=== PATIENT | male | born 1985 | race Caucasian/White ===

== ENCOUNTER 2022-04-21 13:24 | Emergency (ER) | payer SELFPAY ==
[~2022-04-21] VITALS: Ht 165.1 cm; Wt 92.5 kg
[~2022-04-21 13:24] MED LIST: ACET-8386 PO
[2022-04-21 13:32] VITALS: BP 137/84
--- NOTE | 2022-04-21 14:40 | NUR ---
PT AMB TO BED 8
--- NOTE | 2022-04-21 14:46 | NUR ---
PA APARICIO EVALUATING PT AT THIS TIME
[2022-04-21] MEDS ORDERED: KETOROLAC 30 MG/ML VIAL IM ONE (14:55)
--- NOTE | 2022-04-21 15:20 | NUR ---
36YO MALE PT C/O SHARP 9/10 LOWER BACK PAIN X3 DAYS. PT STATES NEW ONSET OF PAIN WHILE BENDING AT WAIST AFTER A DAY OF SWIMMING. PT HAS HX OF HERNIATED DISC AND HAS CHRONIC MILD EPISODES OF PAIN X2 YEARS . PT STATES HE USUALLY HAS MILD RELIEF WHEN TAKING TYLENOL, DENIES RELIEF TODAY. PT HAS MOST PAIN IN LOWER R BACK AND AT MOVEMENT . PT AMBULATORY W/ HUNCHED BACK. BACK PRESENTS W/O VISIBLE INJURY OR SWELLING AND NON TENDER. PT ABLE TO BEND AT WAIST WITH DISCOMFORT. DENIES N/V/D OR CHEST PAIN. PT AAOX4 AND SITTING UP IN BED PER COMFORT. NO VISIBLE DISTRESS, RESPIRATIONS EVEN AND UNLABORED. HX: HERNIATED DISC NKA
[2022-04-21 16:16] VITALS: BP 133/89
[2022-04-21] MEDS ORDERED: LID5T TP (16:21)
[2022-04-21] MEDS ORDERED: IBUP-2213 PO (16:21)
[2022-04-21] MEDS ORDERED: ACET-8386 PO (16:21)
--- NOTE | 2022-04-21 16:40 | NUR ---
Patient discharged with v/s stable. Written and verbal after care instructions ABOUT LUMBSACRAL RADICULOPATHY given and explained. Patient verbalized understanding. Ambulatory with steady gait. Prescription for Hydrocodone/acetaminophen, ibuprofen, and lidocaine given. Work status report given. All questions addressed prior to discharge. Advised to follow up with PMD.
== END 2022-04-21 16:40 | disposition home or self-care (01) ==
LOC: MED 13:24
DX: S39.012A Strain of muscle, fascia and tendon of lower back, initial encounter (principal); K21.9 Gastro-esophageal reflux disease without esophagitis; X58.XXXA Exposure to other specified factors, initial encounter; Y93.89 Activity, other specified; Y92.89 Other specified places as the place of occurrence of the external cause; Y99.8 Other external cause status
CPT/HCPCS: 81002; 96372; 99283; J1885